=== PATIENT | female | born 1940 | race African-American/Black ===

== ENCOUNTER 2016-11-07 16:56 | Emergency (ER) | payer MEDICARE, BC ==
[~2016-11-07] VITALS: Ht 325.1 cm; Wt 99.8 kg
[~2016-11-07 16:56] MED LIST: AMLO1CAP PO; ASPI-630 PO; BIMA2.5D EACHEYE; CELE200C PO; CHOL200074 PO; DORZ10DR21 EACHEYE; DORZ10DR3 EACHEYE; ESTR1PAT10 TP; ESTR1PAT84 TD; EZET1TAB35 PO; HYDR-2766 PO; HYDR10CA3 PO; LEVO50TA5 PO; [UNRECOGNIZED DRUG - OTHER]
[2016-11-07] MEDS ORDERED: IV NORMAL SALINE 1,000ML 1,000 ML IV SCH (17:30)
[2016-11-07] MEDS ORDERED: ONDANSETRON PF 4 MG/2 ML VIAL. IV ONE ×2 (18:00→19:00)
--- NOTE | 2016-11-07 18:38 | PHYS DOC ---
Past History Past Medical History: High Cholesterol, Hypertension, Other Past Surgical History: Hysterectomy, Knee Replacement, Other Smoking: Non-smoker Alcohol Use: None Drug Use: None Adult General Chief Complaint Chief Complaint: ABDOMINAL PAIN HPI HPI Patient is a 76 year old female who presents with complaint of nausea, vomiting , diarrhea, and abdominal pain. Patient states that her nausea started last night. The patient underwent a colonoscopy earlier today by Dr. Iglesias of gastroenterology at [facility]. Patient states since her procedure she has had worsening nausea, vomiting, and continued diarrhea. Patient states that she is having lower abdominal pain currently which she rates as 9 out of 10. Patient states that the pain is sharp. Patient denies radiation of pain. Due to persistent symptoms, the family contacted Dr. Iglesias' s office and was instructed to come to the emergency department for further evaluation. Patient denies any fevers. Patient has not taken any medications to help with symptoms. Patient is having active vomiting during history taking. The patient notes that she had "a couple polyps removed" and states that no further abnormal findings were found. Review of Systems Review of Systems Constitutional: Denies fever or chills [] Eyes: Denies change in visual acuity, redness, or eye pain [] HENT: Denies nasal congestion or sore throat [] Respiratory: Denies cough or shortness of breath [] Cardiovascular: No additional information not addressed in HPI [] GI: Abdominal pain, nausea, vomiting, diarrhea [] : Denies dysuria or hematuria [] Musculoskeletal: Denies back pain or joint pain [] Integument: Denies rash or skin lesions [] Neurologic: Denies headache, focal weakness or sensory changes [] Current Medications Current Medications Current Medications Medications (Trade) Dose Ordered Sig/Michelle Start Time Stop Time Status Last Admin Dose Admin Ondansetron HCl (Zofran) 4 mg 1X ONCE 11/07/16 18:00 11/07/16 18:01 DC 11/07/16 18:00 4 MG Sodium Chloride 1,000 ml @ 1,000 mls/hr Q1H 11/07/16 17:30 11/07/16 18:29 DC 11/07/16 18:13 1,000 MLS/HR Allergies Allergies Allergies Coded Allergies Type Severity Reaction Last Updated Verified No Known Drug Allergies 07/19/15 No Physical Exam Physical Exam Constitutional: Alert, afebrile, actively vomiting.. [] HENT: Normocephalic, atraumatic, bilateral external ears normal, oropharynx moist, no oral exudates, nose normal. [] Eyes: PERRLA, EOMI, conjunctiva normal, no discharge. [] Neck: Normal range of motion, no tenderness, supple, no stridor. [] Cardiovascular:Heart rate regular rhythm, no murmur [] Lungs & Thorax: Bilateral breath sounds clear to auscultation [] Abdomen: Bowel sounds normal, soft, lower abdominal tenderness to palpation with mild guarding, no rebound tenderness, no masses, no pulsatile masses. [] Skin: Warm, dry, no erythema, no rash. [] Back: No tenderness, no CVA tenderness. [] Extremities: No tenderness, no cyanosis, no clubbing, ROM intact, no edema. [] Neurologic: Alert and oriented X 3, normal motor function, normal sensory function, no focal deficits noted. [] Current Patient Data Vital Signs Vital Signs Date Time Temp Pulse Resp B/P (MAP) Pulse Ox O2 Delivery O2 Flow Rate FiO2 11/07/16 17:15 98.4 8 18 96 Room Air EKG EKG Interpreted by me: Heart rate 76, sinus rhythm, normal intervals, leftward axis , no acute ST/T-wave abnormalities present [] Radiology/Procedures Radiology/Procedures 3 view acute abdominal series interpreted by me: No pulmonary infiltrates or effusions, normal cardiac silhouette, no free air under the diaphragm, nonobstructive bowel gas pattern [address] [address] IMAGING REPORT Signed PATIENT: VIPIN GILL ACCOUNT: [id number] : 1940 LOCATION: ER AGE: 76 SEX: F EXAM STATUS: REG ER ORD. PHYSICIAN: NASEEM LEONARDO MD REASON: severe lower abdominal pain, vomiting PROCEDURE: CT ABD PELV W/ IV CONTRST ONLY CT Abdomen and Pelvis With Intravenous Contrast: History: Nausea, vomiting, diarrhea, lower abdominal pain. Colonoscopy performed today.. Comparison: Previous imaging is electronically unavailable. Technique: After administration of intravenous contrast, 75 mL of Omnipaque 300, CT of the abdomen and pelvis was performed. Exposure: One or more of the following individualized dose reduction techniques were utilized for this examination: 1. Automated exposure control 2. Adjustment of the mA and/or kV according to patient size 3. Use of iterative reconstruction technique Findings: Evaluation of enteric structures may be limited by lack of oral contrast. Liver, spleen, pancreas, gallbladder, and bilateral adrenal glands are unremarkable. Aortic atherosclerosis is seen. No bowel obstruction or inflammation is identified. Appendix is without evidence of inflammation. No free air or free fluid is seen in the abdomen or pelvis. Uterus is absent. Urinary bladder is unremarkable. No free air or free fluid is seen in the abdomen or pelvis. Bilateral kidneys enhance symmetrically. Interpolar region of the right kidney demonstrates a large cystic lesion measuring 6.5 cm. There does appear to be some internal complexity as there may be a small thickened septation. Degenerative changes are present in the spine. Impression: 1. No acute abnormality identified in the abdomen or pelvis. No evidence of bowel inflammation or perforation. 2. Large, mildly complex right renal cyst. Electronically signed by: Jose Ramon Matute MD (11/07/2016 10:03 PM) DICTATED AND SIGNED BY: JOSE RAMON MATUTE MD DATE: 11/07/162155 CC: NASEEM LEONARDO MD; SANDRA PAYNE APRN ~ [] Course & Med Decision Making Course & Med Decision Making Pertinent Labs and Imaging studies reviewed. (See chart for details) The patient was started on IV fentanyl and Zofran as well as IV fluids in the emergency department. On reevaluation, patient's symptoms have not improved and patient continues to complain of severe pain and is actively vomiting. Patient was trialed with morphine and Reglan with no significant improvement. I contacted Dr. Iglesais and spoke with him regarding the patient's case. He is agreeable that patient would need transfer back to [facility] for further evaluation and treatment. I spoke with Dr. Queen who accepted care patient in hospital. Dragon Disclaimer Dragon Disclaimer This chart was dictated in whole or in part using Voice Recognition software in a busy, high-work load, and often noisy Emergency Department environment. It may contain unintended and wholly unrecognized errors or omissions. Departure Departure: Impression: Primary Impression: Intractable nausea and vomiting Additional Impression: Intractable abdominal pain Disposition: 05 XFER OTHER Condition: STABLE Referrals: SANDRA PAYNE APRN (PCP) Problem Qualifiers NASEEM LEONARDO MD Nov 07, 2016 18:38
[2016-11-07] MEDS ORDERED: fentaNYL PF 100 MCG/2 ML VIAL IV PRN (18:45)
[2016-11-07 19:02] LABS: BASO % 0 % (0-3); EOS % 0 % (0-3); HEMATOCRIT 40.6 % (36.0-47.0); HEMOGLOBIN 13.2 g/dL (12.0-15.5); LYMPH # 0.7 x10^3/uL (1.0-4.8); LYMPH % 17 % (24-48); MEAN CORPUSCULAR HEMOGLOBIN 28 pg (25-35); MEAN CORPUSCULAR HGB CONC 33 g/dL (31-37); MEAN CORPUSCULAR VOLUME 85 fL (79-100); MONO # 0.2 x10^3/uL (0.0-1.1); MONO % 6 % (0-9); NEUT % 76 % (31-73); PLATELET COUNT 214 x10^3/uL (140-400); RED BLOOD COUNT 4.76 x10^6/uL (3.50-5.40); RED CELL DISTRIBUTION WIDTH 14.5 % (11.5-14.5); WHITE BLOOD COUNT 3.9 x10^3/uL (4.0-11.0)
[2016-11-07 19:09] LABS: ALBUMIN 4.2 g/dL (3.4-5.0); ALBUMIN/GLOBULIN RATIO 1.1 (1.0-1.7); CREATININE 0.8 mg/dL (0.6-1.0); GFR 84.6; POTASSIUM 3.3 mmol/L (3.5-5.1); TOTAL BILIRUBIN 0.8 mg/dL (0.2-1.0); TOTAL PROTEIN 8.1 g/dL (6.4-8.2)
[2016-11-07] MEDS ORDERED: METOCLOPRAMIDE HCL 10 MG/2 ML VIAL. IV ONE (20:15)
[2016-11-07 20:26] VITALS: BP 125/72
[2016-11-07] MEDS ORDERED: MORPHINE SULFATE 4 MG/ML DISP.SYRIN. IV ONE (20:30)
[2016-11-07] MEDS ORDERED: CONTRAST GIVEN MC PRN (20:45)
[2016-11-07] MEDS ORDERED: IOHEXOL 300 MG/ML 75 ML VIAL. IV ONE (21:00)
--- NOTE | 2016-11-07 22:07 | RAD ---
CT Abdomen and Pelvis With Intravenous Contrast: History: Nausea, vomiting, diarrhea, lower abdominal pain. Colonoscopy performed today.. Comparison: Previous imaging is electronically unavailable. Technique: After administration of intravenous contrast, 75 mL of Omnipaque 300, CT of the abdomen and pelvis was performed. Exposure: One or more of the following individualized dose reduction techniques were utilized for this examination: 1. Automated exposure control 2. Adjustment of the mA and/or kV according to patient size 3. Use of iterative reconstruction technique Findings: Evaluation of enteric structures may be limited by lack of oral contrast. Liver, spleen, pancreas, gallbladder, and bilateral adrenal glands are unremarkable. Aortic atherosclerosis is seen. No bowel obstruction or inflammation is identified. Appendix is without evidence of inflammation. No free air or free fluid is seen in the abdomen or pelvis. Uterus is absent. Urinary bladder is unremarkable. No free air or free fluid is seen in the abdomen or pelvis. Bilateral kidneys enhance symmetrically. Interpolar region of the right kidney demonstrates a large cystic lesion measuring 6.5 cm. There does appear to be some internal complexity as there may be a small thickened septation. Degenerative changes are present in the spine. Impression: 1. No acute abnormality identified in the abdomen or pelvis. No evidence of bowel inflammation or perforation. 2. Large, mildly complex right renal cyst. Electronically signed by: Jose Ramon Yuan MD (11/07/2016 10:03 PM)
--- NOTE | 2016-11-07 22:46 | EKG ---
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
--- NOTE | 2016-11-08 07:49 | RAD ---
Acute abdomen series with chest, 11/07/2016: History: Nausea and vomiting, abdominal pain Gas is present in large and small bowel in a nonspecific pattern. No free air seen in the abdomen. There is no evidence of organomegaly. Aortoiliac calcific plaquing is present. There are mild scattered degenerative changes in the spine. The heart is at the upper limits of normal in size. There is moderate tortuosity of the thoracic aorta. No acute infiltrates are seen. There is no evidence of pleural fluid. IMPRESSION: 1. Aortic atherosclerosis. 2. No acute abdominal abnormality is detected.
== END 2016-11-07 22:14 | disposition short-term general hospital (02) ==
LOC: ER 16:56
DX: R11.2 Nausea with vomiting, unspecified (principal); R10.30 Lower abdominal pain, unspecified; R19.7 Diarrhea, unspecified; E78.00 Pure hypercholesterolemia, unspecified; I10 Essential (primary) hypertension; Z90.710 Acquired absence of both cervix and uterus
CPT/HCPCS: 36415; 74022; 74177; 80053; 83690; 85027; 93005; 96361; 96374; 96375; 96376; 99285; J2270; J2405; J2765; J3010; Q9967; J7030

== ENCOUNTER → 2018-03-17 | Outpatient (CLI) | payer MEDICARE, BC ==
[~2018-03-17] MED LIST changes: +DORZ10DR26 EACHEYE; -DORZ10DR3 EACHEYE
--- NOTE | 2018-03-17 11:48 | RAD ---
DATE: 03/17/2018 EXAM: Bilateral digital mammography with CAD HISTORY: Routine screening COMPARISON: 08/02/2014 This study was interpreted with the benefit of Computerized Aided Detection (CAD). Breast Density: SCATTERED The breast parenchyma shows scattered fibroglandular densities. Breast parenchyma level B. FINDINGS: No new or enlarging breast densities are seen. Minimal benign type calcification is present. No suspicious microcalcifications have developed. IMPRESSION: There is no mammographic evidence of malignancy in either breast. BI-RADS CATEGORY: 2 BENIGN FINDING(S) RECOMMENDED FOLLOW-UP: 12M 12 MONTH FOLLOW-UP PQRS compliance statement: Patient information was entered into a reminder system with a target due date for the next mammogram. Mammography is a sensitive method for finding small breast cancers, but it does not detect them all and is not a substitute for careful clinical examination. A negative mammogram does not negate a clinically suspicious finding and should not result in delay in biopsying a clinically suspicious abnormality. "Our facility is accredited by the [employer] Mammography Program."
== END | disposition home or self-care (01) ==
LOC: MAMMO 10:48
PROVIDERS: ATTEND Obstetrics & Gynecology
DX: Z12.31 Encounter for screening mammogram for malignant neoplasm of breast (principal)
CPT/HCPCS: 77067

== ENCOUNTER 2019-11-19 21:08 | Inpatient (IN) | payer MEDICARE, BC ==
[~2019-11-19] VITALS: Ht 170.2 cm; Wt 98.2 kg
[~2019-11-19 21:08] MED LIST changes: -HYDR-2766 PO; +HYDR-2769 PO
[2019-11-19] MEDS ORDERED: IOHEXOL 300 MG/ML 75 ML VIAL. IV ONE (21:45)
[2019-11-19] MEDS ORDERED: IV NORMAL SALINE 500ML 500 ML IV ONE (21:45)
[2019-11-19] MEDS ORDERED: ONDANSETRON PF 4 MG/2 ML VIAL. IVP ONE (21:45)
--- NOTE | 2019-11-19 21:50 | PHYS DOC ---
Past History Past Medical History: Glaucoma, High Cholesterol, Hypertension, Other Additional Past Medical Histor: GASTROPARESIS Past Surgical History: Hysterectomy, Knee Replacement, Other Additional Past Surgical Histo: ROTATOR CUFF, BACK SX Smoking: Non-smoker Alcohol Use: None Drug Use: None General Adult EDM: Chief Complaint: NAUSEA/VOMITING/DIARRHEA HPI: HPI: 79-year-old female has had nausea, vomiting, and diarrhea since 11 AM this morning. She has had difficulty keeping anything down including water. Patient has vomited up her usual [employer] pain medicines. She takes these for low back pain that is chronic. She is concerned about dehydration. She has generalized abdominal pain, but it is slightly worse low and middle. She denies dysuria or increased urinary frequency. No history of bowel obstruction. She does have gastroparesis for which she takes medications. She threw these up today as well. She denies fever chills. Review of Systems: Review of Systems: Constitutional: Denies fever or chills Eyes: Denies change in visual acuity HENT: Denies nasal congestion or sore throat Respiratory: Denies cough or shortness of breath Cardiovascular: Denies chest pain or edema GI: Generalized abdominal pain, nausea, vomiting, diarrhea : Denies dysuria Musculoskeletal: Denies back pain or joint pain Integument: Denies rash Neurologic: Denies headache, focal weakness or sensory changes Endocrine: Denies polyuria or polydipsia Lymphatic: Denies swollen glands Psychiatric: Denies depression or anxiety Heart Score: Risk Factors: Risk Factors: DM, Current or recent (<one month) smoker, HTN, HLP, family history of CAD, obesity. Risk Scores: Score 0 - 3: 2.5% MACE over next 6 weeks - Discharge Home Score 4 - 6: 20.3% MACE over next 6 weeks - Admit for Clinical Observation Score 7 - 10: 72.7% MACE over next 6 weeks - Early Invasive Strategies Current Medications: Current Meds: Current Medications Medications (Trade) Dose Ordered Sig/Michelle Start Time Stop Time Status Last Admin Dose Admin Fentanyl Citrate (Fentanyl 2ml Vial) 50 mcg 1X ONCE 11/19/19 21:45 11/19/19 21:47 DC 11/19/19 21:43 50 MCG Info (Do NOT chart on this entry -- for MONITORING) 1 each PRN DAILY PRN 11/19/19 22:00 11/21/19 21:59 Iohexol (Omnipaque 300 Mg/ml) 75 ml 1X ONCE 11/19/19 21:45 11/19/19 21:47 DC Ondansetron HCl (Zofran) 4 mg 1X ONCE 11/19/19 21:45 11/19/19 21:47 DC 11/19/19 21:43 4 MG Sodium Chloride 500 ml @ 0 mls/hr 1X ONCE 11/19/19 21:45 11/19/19 21:47 DC 11/19/19 21:43 500 MLS/HR Allergies: Allergies: Allergies Coded Allergies Type Severity Reaction Last Updated Verified No Known Drug Allergies 07/19/15 No Physical Exam: PE: Constitutional: Well developed, obese, well nourished, no acute distress, non- toxic appearance. [] HENT: Normocephalic, atraumatic, bilateral external ears normal, oropharynx moist, no oral exudates, nose normal. [] Eyes: PERRLA, EOMI, conjunctiva normal, no discharge. [] Neck: Normal range of motion, no tenderness, supple, no stridor. [] Cardiovascular: Heart rate regular rhythm, no murmur [] Lungs & Thorax: Bilateral breath sounds clear to auscultation [] Abdomen: Bowel sounds normal, soft, mild generalized tenderness, no masses, no pulsatile masses. [] Skin: Warm, dry, no erythema, no rash. [] Back: No tenderness, no CVA tenderness. [] Extremities: No tenderness, no cyanosis, no clubbing, ROM intact, no edema. [] Neurologic: Alert and oriented X 3, normal motor function, normal sensory function, no focal deficits noted. [] Psychologic: Affect normal, judgement normal, mood normal. [] Current Patient Data: Vital Signs: Vital Signs Date Time Temp Pulse Resp B/P (MAP) Pulse Ox O2 Delivery O2 Flow Rate FiO2 11/19/19 21:14 98.1 77 22 142/78 (99) 99 Room Air EKG: EKG: [] Radiology/Procedures: Radiology/Procedures: [] Impressions: Examination: CT of the abdomen pelvis with IV contrast HISTORY: History of abdominal pain COMPARISON: 11/07/2016 TECHNIQUE: Axial CT images of the abdomen pelvis were performed with IV contrast. Coronal and sagittal reformats are performed Exposure: One or more of the following individualized dose reduction techniques were utilized for this examination: 1. Automated exposure control 2. Adjustment of the mA and/or kV according to patient size 3. Use of iterative reconstruction technique FINDINGS: Linear bibasilar lung atelectasis. No evidence of free air identified in the abdomen. The liver demonstrates small subcentimeter cysts. The spleen, adrenals grossly appears unremarkable. The gallbladder is mildly distended. The stomach is mildly distended. The visualized pancreas grossly appears unremarkable. The small bowel is nondilated. Thickened appearance of the wall of the colon throughout with minimal surrounding fat stranding likely diffuse colitis. Urinary bladder is mildly distended. There is a large cystic structure identified in the right kidney measuring 6.2 cm likely a cyst. Mild degenerative changes lumbar spine. IMPRESSION: 1. Diffuse thickened appearance of the wall of the colon with surrounding inflammatory fat stranding likely diffuse colitis. 2. 6.2 cm right renal cyst. Electronically signed by: Mychal Valentin MD (11/19/2019 11:19 PM) [id number] DICTATED AND SIGNED BY: MYCHAL VALENTIN MD DATE: 11/19/19 2319 CC: MELI DONOVAN DO; MELCHOR HWANG MD ~ Course & Med Decision Making: Course & Med Decision Making Pertinent Labs and Imaging studies reviewed. (See chart for details) The patient's labs are unremarkable. She has been given Zofran and normal saline. The patient CT scan shows colitis. The patient is still feeling mildly nauseated her pain is returning. She is concerned about going home and not being able to take her pain medication. I will go ahead and admit the patient to the hospital for further management. I spoke with Dr. Bolton and he has accepted the patient for admission. [] Dragon Disclaimer: Dragon Disclaimer: This electronic medical record was generated, in whole or in part, using a voice recognition dictation system. Departure Departure: Impression: Primary Impression: Intractable nausea and vomiting Additional Impression: Colitis Disposition: ADMITTED INPATIENT Admitting Physician: Alexis Bolton Condition: STABLE Referrals: MELCHOR HWANG MD (PCP) Justification of Admission: Justification of Admission: Justification of Admission Dx: Comment: Comments: Intractable vomiting, colonic colitis MELI DONOVAN DO Nov 19, 2019 21:50
[2019-11-19] MEDS ORDERED: CONTRAST GIVEN. MC PRN (22:00)
[2019-11-19 22:27] LABS: BASO % 0 % (0-3); EOS % 0 % (0-3); HEMATOCRIT 40.2 % (36.0-47.0); HEMOGLOBIN 12.9 g/dL (12.0-15.5); LYMPH # 0.5 x10^3/uL (1.0-4.8); LYMPH % 12 % (24-48); MEAN CORPUSCULAR HEMOGLOBIN 29 pg (25-35); MEAN CORPUSCULAR HGB CONC 32 g/dL (31-37); MEAN CORPUSCULAR VOLUME 90 fL (79-100); MONO # 0.1 x10^3/uL (0.0-1.1); MONO % 3 % (0-9); NEUT # 3.4 x10^3uL (1.8-7.7); NEUT % 85 % (31-73); PLATELET COUNT 205 x10^3/uL (140-400); RED BLOOD COUNT 4.48 x10^6/uL (3.50-5.40); RED CELL DISTRIBUTION WIDTH 14.2 % (11.5-14.5)
[2019-11-19 22:28] LABS: CALCIUM 8.9 mg/dL (8.5-10.1); GFR 64.9; POTASSIUM 3.5 mmol/L (3.5-5.1)
[2019-11-19 22:34] LABS: ALBUMIN 3.9 g/dL (3.4-5.0); ALBUMIN/GLOBULIN RATIO 1.1 (1.0-1.7); TOTAL BILIRUBIN 0.6 mg/dL (0.2-1.0); TOTAL PROTEIN 7.4 g/dL (6.4-8.2)
--- NOTE | 2019-11-19 23:22 | RAD ---
Examination: CT of the abdomen pelvis with IV contrast HISTORY: History of abdominal pain COMPARISON: 11/07/2016 TECHNIQUE: Axial CT images of the abdomen pelvis were performed with IV contrast. Coronal and sagittal reformats are performed Exposure: One or more of the following individualized dose reduction techniques were utilized for this examination: 1. Automated exposure control 2. Adjustment of the mA and/or kV according to patient size 3. Use of iterative reconstruction technique FINDINGS: Linear bibasilar lung atelectasis. No evidence of free air identified in the abdomen. The liver demonstrates small subcentimeter cysts. The spleen, adrenals grossly appears unremarkable. The gallbladder is mildly distended. The stomach is mildly distended. The visualized pancreas grossly appears unremarkable. The small bowel is nondilated. Thickened appearance of the wall of the colon throughout with minimal surrounding fat stranding likely diffuse colitis. Urinary bladder is mildly distended. There is a large cystic structure identified in the right kidney measuring 6.2 cm likely a cyst. Mild degenerative changes lumbar spine. IMPRESSION: 1. Diffuse thickened appearance of the wall of the colon with surrounding inflammatory fat stranding likely diffuse colitis. 2. 6.2 cm right renal cyst. Electronically signed by: Mychal Valentin MD (11/19/2019 11:19 PM) [id number]
[2019-11-20 00:05] LABS: BILIRUBIN,URINE NEG (NEG); CLARITY,URINE HAZY; COLOR,URINE YELLOW; GLUCOSE,URINE NEG (NEG); UROBILINOGEN,URINE 0.2 mg/dL (0.2 mg/dL)
[2019-11-20 00:06] LABS: BACTERIA,URINE FEW /HPF (0-FEW); NITRITE,URINE NEG (NEG); SQUAMOUS EPITHELIAL CELL,UR FEW /LPF; WBC,URINE 0 /HPF (0-4)
[2019-11-20] MEDS ORDERED: diphenhydrAMINE 50 MG/ML VIAL IVP ONE (00:15)
[2019-11-20] MEDS: IV NORMAL SALINE 1,000ML 1,000 ML IV SCH ×3 (00:45→21:49)
[2019-11-20 00:47] VITALS: BP 137/78
--- NOTE | 2019-11-20 01:43 | NUR ---
Pt arrived to unit at 00:39. Pt admitted to room 113 accompanied by EMS. Pt. ambulates independently pt states that she came for complaint of persistent nausea and vomiting. Pt. was calm and cooperative during assessment. Pt's son dropped off the pt's at home eye drop prescribed for her glaucoma. Eye drops are kept in room at patients bedside. Pt. was started on IV fluids at 100mL/hr. Past medical hx was reviewed with pt. pt could not recall at home medications. Will request medication list from pt's son in AM. Pt orientated to unit and routines. discussed poc, v/u and call light in reach.
[2019-11-20] MEDS: ONDANSETRON PF 4 MG/2 ML VIAL. IVP PRN ×2 (04:08→20:14)
[2019-11-20 05:28] VITALS: BP 145/78
[2019-11-20] MEDS ORDERED: HYDROcodone/APAP 10/325 1 TAB TABLET PO PRN (08:30)
[2019-11-20] MEDS ORDERED: ESTRADIOL TD SCH (08:30)
[2019-11-20] MEDS ORDERED: EZETIMIBE PO SCH (09:00)
[2019-11-20] MEDS ORDERED: EZETIMIBE 10 MG TABLET PO SCH (09:00)
[2019-11-20] MEDS ORDERED: BENAZEPRIL PO SCH (09:00)
[2019-11-20] MEDS ORDERED: AMLODIPINE BESYLATE PO SCH (09:00)
[2019-11-20] MEDS ORDERED: SIMVASTATIN PO SCH (09:00)
--- NOTE | 2019-11-20 09:38 | HP ---
ADMIT DATE: ADMISSION HISTORY AND PHYSICAL ATTENDING PHYSICIAN: Dr. Rodriguez. CHIEF COMPLAINT: Nausea, vomiting, and diarrhea. HISTORY OF PRESENT ILLNESS: The patient is a very pleasant, alert 79-year-old female with a 1-day history of nausea, vomiting and diarrhea since 11:00 the morning of admission. She has difficulty keeping anything down including water. She vomited up her usual [employer] pain meds. She has chronic back pain. She is mildly dehydrated in the ED. The workup showed a fairly unremarkable chemistry panel. Her white count was not elevated. She was not febrile. The CT of the abdomen and pelvis showed a diffuse nonspecific inflammation of the colon. She is admitted then with a diagnosis of gastroenteritis usually self-limiting. PAST MEDICAL HISTORY: Significant for hyperlipidemia, hypertension, degenerative arthritis, and gastroparesis. PAST SURGICAL HISTORY: Includes hysterectomy, knee replacement, rotator cuff and back surgery. SOCIAL HISTORY: She is a nonsmoker and nondrinker. ALLERGIES: She has no known drug allergies. FAMILY HISTORY: Her mother and father both at age 78 of complications of heart disease. MEDICATIONS: Scheduled include amlodipine, Celebrex, cholecalciferol, Dorsopt eyedrops, estradiol, Vytorin, hydrocodone, Synthroid, metoclopramide, ondansetron and Protonix. REVIEW OF SYSTEMS: Significant for the localized GI symptoms, nausea, vomiting, diarrhea. No fevers or chills, COVID-19 exposure. She denied any chest pain or palpitation. All other systems were reviewed and determined to be negative. PHYSICAL EXAMINATION: GENERAL: When I saw her, this is a pleasant, middle-aged female. INITIAL VITAL SIGNS: Showed a blood pressure 148/78, pulse is 65 and regular, temperature 98.4 degrees Fahrenheit, and oxygen saturation 96% on room air. HEENT: Head is without trauma. Pupils are reactive. Sclerae are nonicteric. The oropharynx is clear. NECK: Supple, no bruits. LUNGS: Shallow respirations. CARDIOVASCULAR: Showed distant heart tones. No obvious gallops. Peripheral pulses are palpable and full. ABDOMEN: Soft, obese, protuberant. No organomegaly. Bowel sounds were hypoactive. EXTREMITIES: Showed no cyanosis or edema. NEUROLOGIC: Findings, focally intact. PERTINENT LABORATORY AND X-RAY STUDIES: The CT of the abdomen and pelvis showed evidence of diffuse thickened appearance of the wall of the colon with surrounding inflammatory fat stranding consistent with diffuse colitis, no obstructive pattern was identified. Hemoglobin is maintained at 12.9 g/dL with a white count of 4000. Electrolytes, BUN and creatinine were within normal range. Nonfasting blood sugar 164. Liver panel unremarkable. ASSESSMENT: 1. This 79-year-old female has new onset of diffuse gastroenteritis of a self-limiting nature. 2. Mild dehydration. 3. Essential hypertension. 4. Degenerative arthritis. 5. History of gastroparesis. PLAN: 1. Admit to the inpatient unit. 2. IV hydration. 3. Clear liquid diets for now. 4. Nausea and pain control. 5. Serial chemistries. MATHEW RODRIGUEZ MD DR: ORLIN/arnaldo JOB#: [id number] / [id number] MELCHOR Delaney MD
[2019-11-20] MEDS: DORZOLAMIDE 2% OPHTH SOLUTION 10ML BOTTLE. OU SCH ×2 (10:00→20:18)
[2019-11-20] MEDS: LEVOTHYROXINE 50 MCG TABLET PO SCH (10:55)
[2019-11-20] MEDS: LISINOPRIL 20 MG TABLET PO SCH (10:56)
[2019-11-20] MEDS: amLODIPine BESYLATE 10 MG TABLET PO SCH (10:56)
[2019-11-20 14:26] VITALS: BP 134/82
[2019-11-20] MEDS ORDERED: ESTRADIOL 0.025 MG TD SCH (16:00)
[2019-11-20 20:09] VITALS: BP 142/76
[2019-11-20] MEDS ORDERED: NON FORMULARY ITEM (Bimatoprost (Lumigan) 1 DROP) OU SCH (21:00)
[2019-11-20 23:47] VITALS: BP 127/75
[2019-11-21] MEDS: ONDANSETRON PF 4 MG/2 ML VIAL. IVP PRN ×3 (04:45→12:54)
[2019-11-21 05:59] VITALS: BP 125/76
[2019-11-21] MEDS ORDERED: IV NORMAL SALINE 1,000ML 1,000 ML IV SCH (08:15)
[2019-11-21] MEDS: LEVOTHYROXINE 50 MCG TABLET PO SCH (08:59)
[2019-11-21] MEDS: LISINOPRIL 20 MG TABLET PO SCH (08:59)
[2019-11-21] MEDS: amLODIPine BESYLATE 10 MG TABLET PO SCH (08:59)
[2019-11-21] MEDS: DORZOLAMIDE 2% OPHTH SOLUTION 10ML BOTTLE. OU SCH (09:00)
[2019-11-21 11:00] VITALS: BP 115/72
--- NOTE | 2019-11-21 12:11 | DS ---
DATE OF DISCHARGE: 11/21/2019 ATTENDING PHYSICIAN: Dr. Rodriguez. FINAL DISCHARGE DIAGNOSES: 1. Gastroenteritis self-limiting in nature, most likely viral. 2. Dehydration. 3. Essential hypertension. 4. Degenerative arthritis. 5. History of gastroparesis. 6. Hypothyroidism, on replacement. HISTORY AND PHYSICAL: This is a very pleasant 79-year-old female who was admitted to the hospital with a 1-day history of nausea, vomiting, and diarrhea. She cannot keep anything down. Workup in the ED showed evidence of a viral nonspecific colitis consistent with a self-limiting condition. PHYSICAL EXAMINATION: Please see the dictated note. PERTINENT LABORATORY AND X-RAY STUDIES: Admission hemoglobin was 12.9 g/dL with white count of 4000. Electrolytes are within normal range. Creatinine 1.0 mg/dL, glucose is 164. Urinalysis, pH was 7, otherwise unremarkable. CT of the abdomen and pelvis showed evidence of diffuse thickening of the wall of the colon with surrounding inflammatory fat stranding, most likely diffuse colitis, no obstruction identified. COURSE IN THE HOSPITAL: The patient was admitted with a diagnosis of viral gastroenteritis self-limiting condition and dehydration. She was started on IV hydration and clear liquid diet. She got better. Symptoms were improved. Pain was managed and nausea and diarrhea subsided. Diet was advanced. By the third hospital day, the patient was feeling so much better, she insisted on going home, I felt this is reasonable. Prior to discharge, her blood pressure was 116/72 mmHg, pulse 61 and regular, temperature 98.5 degrees Fahrenheit, and oxygen saturation 95% on room air. I recommended a bland diet for the next 2 days. She will continue her home meds including amlodipine and Lotensin daily, Lumigan eye drops daily, dorzolamide eye drops b.i.d., estradiol patch, Vytorin daily, hydrocodone p.r.n. pain, and Synthroid 50 mcg daily. I suggest that she hold off the Celebrex for now. She will follow up with Dr. Harish hooker. The patient was then discharged from our hospital in stable condition with explicit instructions and followup care. MATHEW RODRIGUEZ MD DR: ORLIN/arnaldo JOB#: [id number] / [id number] MELCHOR Delaney MD
--- NOTE | 2019-11-21 14:04 | NUR ---
Pt discharged home for self care. Pt iv discontinued, pressure dressing applied, no complications. Pt given written and verbal discharge, follow up and medication instructions. Pt left unit in stable condition accompanied by family member.
--- NOTE | 2019-11-21 15:59 | PN ---
DATE: 11/21/2019 ATTENDING PHYSICIAN: Dr. Rodriguez. SUBJECTIVE: The patient is better. No further diarrhea still very weak. She is hungry. She has tolerated clear liquids. OBJECTIVE FINDINGS: VITAL SIGNS: Her blood pressure today is 125/76, pulse is 60 and regular, temperature 98.1 degrees Fahrenheit and her oxygen saturations are 95% on room air. HEENT: Head is without trauma. Pupils are reactive. Sclerae is nonicteric. The oropharynx is clear. NECK: Supple, no bruits. LUNGS: Clear. CARDIOVASCULAR: Showed regular heart tones, no gallops. ABDOMEN: Obese, protuberant. No organomegaly. Hypoactive bowel sounds. No guarding or rebound tenderness. No masses. EXTREMITIES: Showed no cyanosis or edema. NEUROLOGIC: Findings focally intact. Speech is fluent. SKIN: Warm and dry. ASSESSMENT: 1. A 79-year-old female with self-limiting gastroenteritis, improving. 2. Mild dehydration, rehydrated. 3. Essential hypertension, currently normotensive. 4. Degenerative arthritis. 5. History of gastroparesis. PLAN: 1. Advance diet to solid foods. 2. Decrease IV rate. 3. Nausea and pain control. 4. Tentative discharge home tomorrow. MATHEW RODRIGUEZ MD DR: ORLIN/arnaldo JOB#: [id number] / [id number]
== END 2019-11-21 13:30 | disposition home or self-care (01) | DRG 392 ==
LOC: ER 21:08 → UNDOADMIN 23:30 → 1 SOUTH 23:30
PROVIDERS: ADMIT Hospitalist; ATTEND Hospitalist
DX: A08.4 Viral intestinal infection, unspecified (principal); E03.9 Hypothyroidism, unspecified; E78.5 Hyperlipidemia, unspecified; E86.0 Dehydration; G89.29 Other chronic pain; I10 Essential (primary) hypertension; M19.90 Unspecified osteoarthritis, unspecified site; Z79.890 Hormone replacement therapy; Z90.710 Acquired absence of both cervix and uterus; Z96.659 Presence of unspecified artificial knee joint; Z79.899 Other long term (current) drug therapy
CPT/HCPCS: 36415; 74177; 80053; 81001; 85025; 96361; 96374; 96375; 96376; 99285; J1200; J2405; J3010; J7040; Q9967; J7030

== ENCOUNTER → 2020-01-14 | Outpatient (CLI) | payer MEDICARE, BC ==
--- NOTE | 2020-01-17 12:24 | RAD ---
DATE: 01/14/2020 1:30 PM EXAM: DIGITAL SCREEN BILAT W/CAD HISTORY: Screening COMPARISON: 03/17/2018, 08/02/2014 Bilateral full field craniocaudal and mediolateral oblique images were obtained using digital technique. This study was interpreted with the benefit of Computerized Aided Detection (CAD). FINDINGS: Breast Density: SCATTERED The breast parenchyma shows scattered fibroglandular densities. Breast parenchyma level B No suspicious masses, microcalcifications or architectural distortion is present to suggest malignancy in either breast. The visualized axillae are unremarkable. IMPRESSION: No mammographic evidence of malignancy. BI-RADS CATEGORY: 1 NEGATIVE RECOMMENDED FOLLOW-UP: 12M 12 MONTH FOLLOW-UP Annual screening mammography is recommended, unless clinically indicated sooner based on symptoms or change in physical exam. PQRS compliance statement: Patient information was entered into a reminder system with a target due date for the next mammogram. Mammography is a sensitive method for finding small breast cancers, but it does not detect them all and is not a substitute for careful clinical examination. A negative mammogram does not negate a clinically suspicious finding and should not result in delay in biopsying a clinically suspicious abnormality. "Our facility is accredited by the [employer] Mammography Program."
== END | disposition home or self-care (01) ==
LOC: MAMMO 13:15
PROVIDERS: ATTEND Obstetrics & Gynecology
DX: Z12.31 Encounter for screening mammogram for malignant neoplasm of breast (principal)
CPT/HCPCS: 77067

== ENCOUNTER → 2020-11-15 | Outpatient (CLI) | payer MEDICARE, BC ==
--- NOTE | 2020-11-15 11:04 | RAD ---
EXAMINATION: US ABDOMEN LIMITED INDICATION: 80 years, Female, epigastric pain. COMPARISON: CT dated 11/19/2019 TECHNIQUE: Grayscale, color Doppler and limited spectral Doppler images of the right upper quadrant w ere obtained. FINDINGS: LIVER: SIZE (LENGTH): 17.7 cm. ECHOGENICITY: Increased PARENCHYMA: Mild heterogeneous echotexture. No discrete focal lesion. INTRAHEPATIC BILE DUCTS: Nondilated. PORTAL VEIN: Patent with normal hepatopedal flow. GALLBLADDER: GALLBLADDER WALL THICKNESS: 2.4 mm MORPHOLOGY: Mild gallbladder hydrops. No wall hyperemia or pericholecystic free fluid. LUMEN: Normal. COMMON BILE DUCT DIAMETER: 1.2 cm, previously measures 1.1 cm RIGHT KIDNEY: MEASURES: 11.9 x 7.6 x 5.1 cm. MORPHOLOGY/PARENCHYMA: Normal corticomedullary differentiation with no shadowing calculus. Redemonstr ated simple 7.5 cm cyst in the upper pole, unchanged in size since prior exam. COLLECTING SYSTEM: No hydronephrosis. PANCREAS: VISUALIZED PORTIONS: Head and body APPEARANCE: Diffuse parenchymal atrophy. OTHER: RETROPERITONEUM, INFERIOR VENA CAVA: Normal caliber. AORTA: Normal caliber measures up to 2.0 cm FLUID:No free fluid. IMPRESSION: 1. Dilated common bile duct measures up to 1.2 cm, essentially unchanged since prior CT exam, with al lowing differences in modality. No intrahepatic biliary ductal dilation. Findings may relate to sphin cter of Oddi dysfunction/spasm. Recommend correlation with liver function test and may consider MRCP, as warranted. 2. Mild gallbladder hydrops without cholelithiasis or sonographic evidence of acute cholecystitis. 3. Mild to moderate diffuse hepatic steatosis. 4. Stable 7.5 cm upper pole right renal simple cyst. Electronically signed by: Chelita Camacho MD (11/15/2020 11:01 AM) [facility]
--- NOTE | 2020-11-15 13:53 | RAD ---
EXAM: Nuclear hepatobiliary scan. HISTORY: Pain. TECHNIQUE: Following intravenous administration of 5.0 mCi Tc 99m Choletec, anterior images of the ab domen were obtained at five minute intervals through one hour. Subsequently, 8 ounces Ensure drink wa s ingested and additional images to assess gallbladder ejection fraction were obtained. FINDINGS: There is prompt radiotracer uptake by the liver. No focal defect is seen. There is normal e xcretion into the biliary tree. The gallbladder is visualized within 25 minutes and there is free kiko w into the duodenum. The gallbladder ejection fraction is 39 percent. IMPRESSION: Low normal gallbladder ejection fraction of 39 percent. Electronically signed by: Aylin Jacobo MD (11/15/2020 1:51 PM) [id number]
== END ==
LOC: US 09:52
PROVIDERS: ATTEND Internal Medicine Gastroenterology
DX: K76.0 Fatty (change of) liver, not elsewhere classified (principal); N28.1 Cyst of kidney, acquired; K82.1 Hydrops of gallbladder; K83.8 Other specified diseases of biliary tract
CPT/HCPCS: 76705; 78227; A9537

== ENCOUNTER → 2021-08-28 | Outpatient (CLI) | payer MEDICARE, BC ==
--- NOTE | 2021-08-28 13:02 | RAD ---
EXAMINATION: XR CHEST 2V CLINICAL HISTORY: PANUVEITIS. EXAM DATE/TIME: 08/28/2021 12:04 PM COMPARISON: None FINDINGS: Lines, Tubes, and Devices: None. Cardiomediastinal Silhouette: Borderline cardiomegaly. Lungs and Pleura: Minimal bibasilar patchy opacities, possibly subsegmental atelectasis. No pleural e ffusion. Pulmonary vasculature unremarkable. Bones and Soft Tissues: Degenerative changes in the thoracic spine. IMPRESSION: Minimal patchy bibasilar airspace disease, possibly subsegmental atelectasis. Electronically signed by: Vinny Nice DO (08/28/2021 1:00 PM) [id number]
== END ==
LOC: RAD 11:57
PROVIDERS: ATTEND Family Medicine
DX: H44.119 Panuveitis, unspecified eye (principal); I51.7 Cardiomegaly; M47.814 Spondylosis without myelopathy or radiculopathy, thoracic region
CPT/HCPCS: 71046